=== PATIENT | female | born 1945 | race Caucasian/White ===

== ENCOUNTER 2022-06-29 11:48 | Emergency (ER) | payer MEDICARE, OTHER, SELFPAY ==
--- NOTE | ~2022-06-29 | XR_ITS ---
EXAMINATION: XR chest 2V DATE: 06/29/2022 12:16 INDICATION: Cough and fever. TECHNIQUE: Frontal and lateral views of the chest were obtained. COMPARISON: None. FINDINGS: There is mild atelectasis in lingula. No pleural effusion or pneumothorax. The heart size i s normal. There are changes of left shoulder replacement. There are changes of posterior fusion proce dure in lumbar spine. IMPRESSION: 1. Mild atelectasis in lingula. Reviewed, dictated and finalized at location A.
--- NOTE | 2022-06-29 11:50 | ED.URI ---
HPI - URI/Sore Throat General Chief Complaint: Upper Respiratory Infection Stated Complaint: uri symptoms/fever Time Seen by Provider: 06/29/22 11:50 Source: patient and RN notes reviewed History of Present Illness HPI Narrative: Patient is a 77-year-old female who presents the urgent care with complaints of upper respiratory symptoms and fever. Patient states her fevers been low-grade of 99-100.1. Patient states she has been taking Tylenol for the last 3 days with improvements. Patient states her main concern is the chest congestion and cough. Patient denies any chest pain or shortness of breath. Denies any urinary symptoms, abdominal pain, nausea or vomiting. Denies any ill exposures. Patient states that she had like symptoms 2 to 3 weeks ago, tested negative for COVID and has not had any recent testing completed. No other acute complaints. No acute distress noted. Patient aware of the plan of care. Some parts of this dictation were generated by voice recognition software and may contain typographical and/or grammatical inaccuracies. Related Data Home Medications Medication Instructions Recorded Confirmed amlodipine 5 mg tablet 5 mg DIRECTED 06/29/22 06/29/22 cyclobenzaprine 10 mg tablet 10 mg DIRECTED 06/29/22 06/29/22 ezetimibe 10 mg tablet 10 mg DIRECTED 06/29/22 06/29/22 famotidine 40 mg tablet 40 mg DIRECTED 06/29/22 06/29/22 levothyroxine 100 mcg tablet 100 mcg DIRECTED 06/29/22 06/29/22 losartan 50 mg tablet 50 mg DIRECTED 06/29/22 06/29/22 rosuvastatin 20 mg tablet 20 mg DIRECTED 06/29/22 06/29/22 Allergies Allergy/AdvReac Type Severity Reaction Status Date / Time meperidine Allergy Mild Verified 02/09/18 16:02 Review of Systems Review of Systems: CONSTITUTIONAL: Reports a fever EYES: Denies visual changes, redness, or discharge. ENT: Denies rhinorrhea, congestion, sore throat, or otalgia. CARDIOVASCULAR: Denies chest pain, palpitations, or edema. RESPIRATORY: Reports of chest congestion and cough without dyspnea GASTROINTESTINAL: Denies abdominal pain, nausea, vomiting, or diarrhea. GENITOURINARY: Denies dysuria or hematuria. SKIN: Denies rash or itching. MUSCULOSKELETAL: Denies back pain, joint pain, or myalgia. NEUROLOGIC: Denies headache, numbness, or weakness. All other systems reviewed are negative, except as documented in HPI. PMFSH Comments At the time of my signature, I reviewed and agree with the nursing past medical, surgical, social, and family history. There is no relevant family history pertinent to the patient complaint. Exam Narrative: GENERAL: This is a well-nourished, well-developed patient, in no apparent distress. HEAD: normocephalic, atraumatic. EYES: PERRL. Sclera clear/white. Vision is grossly intact. EARS: External ears normal, auditory canals clear and without drainage, TMs normal without perforation. Hearing grossly intact. NOSE: External nose normal with no obvious nasal discharge, nares without redness, no rhinorrhea. THROAT: Mucous membranes moist, posterior pharynx clear. Moderate postnasal drainage NECK: Neck supple, non-tender without lymphadenopathy CARDIOVASCULAR: Regular rate and rhythm without murmurs, gallops, or rubs. RESPIRATORY: Diminished right upper lobe and bibasilar without wheezes SKIN: warm, intact with no suspicious lesions or rash, good texture and turgor. NEURO: awake, alert, and oriented to person, place and time. There were no obvious focal neurologic abnormalities. EXTREMITIES: No clubbing, cyanosis, or edema. Course Course Level of Care: Express Care Visit Vital Signs Vital signs: Vital Signs Temperature 99.3 F 06/29/22 12:01 Pulse Rate 73 06/29/22 12:01 Respiratory Rate 16 06/29/22 12:01 Blood Pressure 129/66 06/29/22 12:01 Pulse Oximetry 98 06/29/22 12:01 Temperature 99.3 F 06/29/22 12:01 Pulse Rate 73 06/29/22 12:01 Respiratory Rate 16 06/29/22 12:01 Blood Pressure 129/66 06/29/22 12:01
[2022-06-29 12:01] VITALS: BP 129/66; PULSE 73; RESP 16; TEMP 37.4; O2SAT 98
== END 2022-06-29 12:39 | disposition home or self-care (01) ==
PROVIDERS: Emergency Provider Nurse Practitioner Family
DX: U07.1 COVID-19 (principal); E78.00 Pure hypercholesterolemia, unspecified; K21.9 Gastro-esophageal reflux disease without esophagitis; I12.9 Hypertensive chronic kidney disease with stage 1 through stage 4 chronic kidney disease, or unspecified chronic kidney disease; N18.30 Chronic kidney disease, stage 3 unspecified; Z90.5 Acquired absence of kidney
CPT/HCPCS: 71046; 87426; 99203; C9803; G0463

== ENCOUNTER 2022-10-12 08:24 | Emergency (ER) | payer MEDICARE, OTHER, SELFPAY ==
[2022-10-12 08:39] VITALS: BP 111/59; PULSE 83; RESP 16; TEMP 36.9; O2SAT 100
--- NOTE | 2022-10-12 08:47 | ED.SKABFB ---
HPI - Skin/Abscess/Foreign Bdy General Chief complaint: Skin/Abscess/Foreign Body Stated complaint: shingles Time Seen by Provider: 10/12/22 08:42 Source: patient Mode of arrival: ambulatory Limitations: no limitations History of Present Illness HPI narrative: Ms. Feliz is a 77-year-old female patient presenting to the clinic today with complaints of possible shingles to her left hip/back. She reports that this been going on for 2 days. Has noticed new spots spreading on her midback. She reports that the rash is painful. Has had 2 shingles shots in the past but has not finish the series of Zostavax due to COVID. Related Data Home Medications Medication Instructions Recorded Confirmed amlodipine 5 mg tablet 5 mg DIRECTED 06/29/22 06/29/22 ezetimibe 10 mg tablet 10 mg DIRECTED 06/29/22 06/29/22 famotidine 40 mg tablet 40 mg DIRECTED 06/29/22 06/29/22 levothyroxine 100 mcg tablet 100 mcg DIRECTED 06/29/22 06/29/22 losartan 50 mg tablet 50 mg DIRECTED 06/29/22 06/29/22 rosuvastatin 20 mg tablet 20 mg DIRECTED 06/29/22 06/29/22 aspirin 81 mg tablet 81 mg PO DAILY 10/12/22 10/12/22 cholecalciferol (vitamin D3) 10 20 mcg PO DAILY 10/12/22 10/12/22 mcg (400 unit) capsule levothyroxine 88 mcg tablet 88 mcg PO EVERY OTHER DAY 10/12/22 10/12/22 metoprolol succinate 25 mg 12.5 mg PO DAILY 10/12/22 10/12/22 tablet,extended release 24 hr pantoprazole 40 mg tablet,delayed 40 mg PO DAILY 10/12/22 10/12/22 release Allergies Allergy/AdvReac Type Severity Reaction Status Date / Time meperidine Allergy Mild Unknown Verified 10/12/22 08:45 Review of Systems Review of Systems: Pertinent positives per HPI. Patient denies any fever, chills, headache, visual changes, dizziness, cough, runny nose, sore throat, shortness of breath, chest pain, palpitations, nausea, vomiting, diarrhea, constipation, abdominal pain, or any urinary issues. PMFSH Comments At the time of my signature, I reviewed and agree with the nursing past medical, surgical, social, and family history. There is no relevant family history pertinent to the patient complaint. Exam Narrative: General: Well-developed, well nourished, in no apparent distress Head: Normocephalic, atraumatic. Cardio: Regular rate and rhythm, s1 and s2 normal, no murmur appreciated. Resp: Clear to auscultation bilaterally, no rhonchi, rales, wheezing or rubs. Integumentary: [place], warm, and dry, dark red raised base rash with vesicular lesions covering the left anterior hip, left fold of groin, left lateral hip, and left lower back/posterior hip-not crossing the dermatomes midline Course Course Emergency Course: Portions of this record may have been created with voice recognition software. Level of Care: Express Care Visit Vital Signs Vital signs: Vital Signs Temperature 36.9 C 10/12/22 08:39 Pulse Rate 83 10/12/22 08:39 Respiratory Rate 16 10/12/22 08:39 Blood Pressure 111/59 L 10/12/22 08:39 Pulse Oximetry 100 10/12/22 08:39 Temperature 36.9 C 10/12/22 08:39 Pulse Rate 83 10/12/22 08:39 Respiratory Rate 16 10/12/22 08:39 Blood Pressure 111/59 L 10/12/22 08:39 Pulse Oximetry 100 10/12/22 08:39 Vital signs reviewed MDM - Skin/Abscess/Foreign Bdy MDM Narrative Medical decision making narrative: At the time of visit patient is resting comfortably on exam table. She has a vesicular painful rash to the left lower hip/lower back/groin. I suspect that she has shingles. Prescription for Valtrex and lidocaine cream was sent to the pharmacy. Supportive measures were discussed with the patient and she voiced understanding of discharge instructions and agrees to treatment plan. Differential Diagnosis Differential diagnosis: Likely abscess of skin or subcutaneous tissue, herpes zoster, allergic reaction to drug, cellulitis, eczema and contact dermatitis Discharge Plan Discharge Clinical Impression: Herpes zoster Patient Disp
== END 2022-10-12 08:54 | disposition home or self-care (01) ==
PROVIDERS: Emergency Provider Nurse Practitioner Family
DX: B02.9 Zoster without complications (principal); E78.00 Pure hypercholesterolemia, unspecified; K21.9 Gastro-esophageal reflux disease without esophagitis; I12.9 Hypertensive chronic kidney disease with stage 1 through stage 4 chronic kidney disease, or unspecified chronic kidney disease; N18.30 Chronic kidney disease, stage 3 unspecified; E89.0 Postprocedural hypothyroidism; Z90.5 Acquired absence of kidney
CPT/HCPCS: 99213; G0463

== ENCOUNTER 2023-08-30 16:04 | Emergency (ER) | payer MEDICARE, OTHER, SELFPAY ==
--- NOTE | 2023-08-30 16:14 | ED.URI ---
HPI - URI/Sore Throat General Chief Complaint: Upper Respiratory Infection Stated Complaint: Cough Time Seen by Provider: 08/30/23 16:18 Source: patient and RN notes reviewed Mode of arrival: ambulatory Limitations: no limitations History of Present Illness HPI Narrative: 78-year-old female presents with concern for cough that started over the weekend. She denies fever, aches, chills, sweats. She denies sore throat, runny nose, stuffy nose, shortness of breath, fever, chest pain. Reports taking cough medicine without relief MD elicited complaint: cough Related Data Home Medications Medication Instructions Recorded Confirmed levothyroxine 100 mcg tablet 100 mcg PO DIRECTED 06/29/22 08/30/23 rosuvastatin 20 mg tablet 30 mg PO DIRECTED 06/29/22 08/30/23 aspirin 81 mg tablet 81 mg PO DAILY 10/12/22 08/30/23 cholecalciferol (vitamin D3) 10 20 mcg PO DAILY 10/12/22 08/30/23 mcg (400 unit) capsule levothyroxine 88 mcg tablet 88 mcg PO EVERY OTHER DAY 10/12/22 08/30/23 pantoprazole 40 mg tablet,delayed 40 mg PO DAILY 10/12/22 08/30/23 release Allergies Allergy/AdvReac Type Severity Reaction Status Date / Time meperidine Allergy Mild Unknown Verified 08/30/23 16:21 Review of Systems Review of Systems: CONSTITUTIONAL: Denies malaise, chills, sweats, or fever. EYES: Denies visual changes, redness, or discharge. ENT: Denies rhinorrhea, congestion, sinus pain, otalgia and sore throat. CARDIOVASCULAR: Denies chest pain, palpitations, or edema. RESPIRATORY: Reports cough. Denies dyspnea. GASTROINTESTINAL: Denies abdominal pain, nausea, vomiting, diarrhea SKIN: Denies rash or itching. MUSCULOSKELETAL: Denies myalgia. NEUROLOGIC: Denies headache. All systems reviewed & are unremarkable except as noted in HPI and below PMFSH Comments At time of signature, agree with nursing past medical, surgical, social and family history. There is no relevant family history pertinent to the presenting complaint Exam Narrative: GENERAL: Well-appearing, well-nourished, and in no acute distress. HEAD: Normocephalic EYES: PERRLA, conjunctivae clear ENT: Nares clear. Mucous membranes moist. TM pearly loera with dull light reflex bilaterally; no tragal tenderness. Oropharynx not erythematous without lesions. Tonsils not enlarged and without exudate, no drooling, no hoarseness, no trismus, uvula midline. NECK: Supple. No lymphadenopathy CHEST: Clear to auscultation, breath sounds equal. No wheezing, rhonchi, rales, or stridor. No respiratory distress, speaks in full sentences. HEART: Regular rate and rhythm. No murmur heard. SKIN: Warm, dry, no rash. NEURO: Alert and oriented x3. PSYCH: Normal mood and affect Course Course Emergency Course: Patient is aware of diagnosis, understands and agrees to treatment plan. Anticipatory guidance given. Patient agrees to follow-up as directed and is aware of reasons to seek care at the emergency department. Portions of this record may have been created with voice recognition software Level of Care: Express Care Visit Vital Signs Vital signs: Reviewed. MDM - URI/Sore Throat MDM Narrative Medical decision making narrative: Differential diagnosis considered: Rey virus, strep pharyngitis, allergic rhinitis, upper respiratory tract infection, sinusitis, rhinosinusitis, nasopharyngitis. viral pharyngitis, otitis media, otitis externa, pneumonia, bronchitis, viral cough syndrome, viral syndrome, and influenza. Exam findings show no acute concerns or changes; patient is non-toxic appearing and is in no distress. Patient is appropriate for outpatient treatment and follow-up. Lab Data Attestation: I reviewed the patient's lab results. Critical Care Time Critical Care Time Critical Care Time: No Discharge Plan Discharge Clinical Impression: Cough Patient Disposition: Home, Self-Care Condition: Stable Instructions: Acute Cough (ED) Additional Instructions: Viral illness
[2023-08-30 16:16] VITALS: BP 145/96; PULSE 104; RESP 16; TEMP 36.4; O2SAT 99
== END 2023-08-30 16:35 | disposition home or self-care (01) ==
PROVIDERS: Emergency Provider Nurse Practitioner
DX: R05.9 Cough, unspecified (principal); E78.00 Pure hypercholesterolemia, unspecified; K21.9 Gastro-esophageal reflux disease without esophagitis; I12.9 Hypertensive chronic kidney disease with stage 1 through stage 4 chronic kidney disease, or unspecified chronic kidney disease; N18.30 Chronic kidney disease, stage 3 unspecified; Z90.5 Acquired absence of kidney; E89.0 Postprocedural hypothyroidism; Z98.42 Cataract extraction status, left eye; Z98.41 Cataract extraction status, right eye
CPT/HCPCS: 99213; G0463

== ENCOUNTER 2023-12-16 08:32 | Inpatient (IN) | payer MEDICARE, OTHER, SELFPAY ==
[2023-12-16] VITALS (24 sets, daily range): BP systolic 114–193; BP diastolic 50–98; PULSE 57–101; RESP 14–24; TEMP 36.3–36.8; O2SAT 96–100; BMI 29.1
--- NOTE | ~2023-12-16 | US_ITS ---
EXAMINATION: US renal BI DATE: 12/17/2023 17:34 INDICATION: elevated creatinine TECHNIQUE: Multiple grayscale and Doppler ultrasound images of the kidneys were obtained. COMPARISON: None. FINDINGS: The right kidney measures 11.8 x 5.6 x 4.7 cm. The left kidney is surgically absent The right kidney demonstrates normal parenchymal echogenicity. 1.6 cm simple right renal cyst. There is no hydronephro sis. The bladder is not visualized. IMPRESSION: Normal right kidney. Status post left nephrectomy. Reviewed, dictated and finalized at location K. C DEVELOPER
--- NOTE | ~2023-12-16 | XR_ITS ---
EXAMINATION: XR chest 2V DATE: 12/16/2023 10:29 INDICATION: Shortness of breath. Central chest pain radiating to the jaw. TECHNIQUE: PA and lateral views of the chest were obtained. COMPARISON: Chest radiograph dated 06/29/2022 FINDINGS: Unchanged mild linear discoid atelectasis/scarring at the medial . No new airspace opacities, pulmona ry edema, pleural effusion or pneumothorax. The cardiomediastinal silhouette is normal. Left shoulder arthroplasty. Mild lower thoracic dextrocurvature with moderate to severe thoracic spondylosis. Part ial visualized pedicle screws in the upper lumbar spine for a lumbar posterior spinal fusion. IMPRESSION: 1. Chronic mild lingular discoid atelectasis/scarring. No acute cardiopulmonary disease. Reviewed, dictated and finalized at location A. GER MECHANICAL
--- NOTE | 2023-12-16 08:33 | ECG_ITS ---
Measurements Intervals [place] Rate: 62 P: 51 UT: 137 QRS: -4 QRSD: 87 T: 44 QT: 390 QTc: 396 Interpretive Statements SINUS RHYTHM NORMAL ELECTROCARDIOGRAM NO PREVIOUS ECG AVAILABLE FOR COMPARISON Electronically Signed On 12-16-2023 19:11:37 [employer] OPERATOR by Juan Rendon M.D.
[2023-12-16 09:11] LABS: Basophils Percent Auto 0.3 % (0.2-1.2); Eosinophils Absolute Auto 0.1 K/mm3 (0-0.3); Eosinophils Percent Auto 0.6 % (0-4.4); Hematocrit 34.6 % (37.0-47.0); Hemoglobin 10.9 g/dL (12.0-15.0); Immature Granulocyte Absolute 0.16 K/mm3 (0.00-0.031); Immature Granulocyte Percent A 1.4 % (0-0.5); Lymphocytes Absolute Auto 1.07 K/mm3 (0.9-3.2); Lymphocytes Percent Auto 9.6 % (18.3-44.2); Mean Corpuscular HGB Conc 31.5 g/dl (32-36); Mean Corpuscular Hemoglobin 30.6 pg (26-34); Mean Corpuscular Volume 97.2 fl (80-100); Mean Platelet Volume 10.7 fl (7.4-10.4); Monocytes Absolute Auto 0.5 K/mm3 (0.1-0.6); Monocytes Percent Auto 4.2 % (2.6-8.5); Neutrophils Absolute Auto 9.3 K/mm3 (1.3-6.7); Neutrophils Percent Auto 83.9 % (45.5-73.1); Platelet Count Result 208 k/mm3 (150-375); Red Blood Count 3.56 M/mm3 (4.2-5.4); Red Cell Distribution Width 14.9 % (11.5-14.5); White Blood Count 11.1 K/mm3 (4.5-10.0)
[2023-12-16 09:23] LABS: Alanine Aminotransferase 19 U/L (6-35); Alkaline Phosphatase 67 U/L (38-126); Anion Gap 10 mmol/L (8-16); Aspartate Amino Transferase 25 U/L (14-36); Bilirubin,Total 0.6 mg/dL (0.2-1.3); Blood Urea Nitrogen 25 mg/dL (7-17); Calcium 10.9 mg/dL (8.4-10.2); Carbon Dioxide 21 mmol/L (22-30); Chloride 106 mmol/L (98-107); Estimated CRCL calculation 28 ml/min; Estimated Glomerular Filt Rate 36; Glucose 168 mg/dL (65-110); Lipase 256 U/L (23-300); Potassium 5.4 mmol/L (3.4-5.0); Sodium 137 mmol/L (137-145)
[2023-12-16 09:29] LABS: Partial Thromboplastin Time 23.3 SECONDS (22.3-36.8); Prothrombin Time 13.3 Seconds (11.1-14.7)
[2023-12-16 09:36] LABS: Troponin I < 0.012 ng/mL (0.000-0.034)
--- NOTE | 2023-12-16 11:01 | ED.CHESTPAIN ---
HPI - Chest Pain General Chief Complaint: Chest Pain Stated Complaint: cp/sob/jaw pain Time Seen by Provider: 12/16/23 11:00 History of Present Illness HPI narrative: Patient is a 78-year-old female who presents to the emergency department this morning complaining of chest pressure that started approximately 30 minutes prior to arrival. Pain originates in the substernal region and radiates to her left jaw. Patient states that she does have mild shortness of breath associated with the pain but denies any nausea or vomiting episodes. Patient is also denying any abdominal pain, dysuria, hematuria, constipation, diarrhea, melena, hematochezia, fevers, chills, headaches, dizziness, blurry visions, focal weakness, numbness and no tingling. There are no other modifying, alleviating, or precipitating factors at this time. Related Data Home Medications Medication Instructions Recorded Confirmed levothyroxine 100 mcg tablet 100 mcg PO DIRECTED 06/29/22 08/30/23 rosuvastatin 20 mg tablet 30 mg PO DIRECTED 06/29/22 08/30/23 aspirin 81 mg tablet 81 mg PO DAILY 10/12/22 08/30/23 cholecalciferol (vitamin D3) 10 20 mcg PO DAILY 10/12/22 08/30/23 mcg (400 unit) capsule levothyroxine 88 mcg tablet 88 mcg PO EVERY OTHER DAY 10/12/22 08/30/23 pantoprazole 40 mg tablet,delayed 40 mg PO DAILY 10/12/22 08/30/23 release Allergies Allergy/AdvReac Type Severity Reaction Status Date / Time meperidine Allergy Mild Unknown Verified 08/30/23 16:21 Review of Systems Review of Systems: All systems are reviewed and are negative unless stated otherwise in the HPI. [facility] Past Medical History Medical History Former tobacco use GERD (gastroesophageal reflux disease) HLD (hyperlipidemia) HTN (hypertension) Hypothyroidism Renal cell carcinoma s/p nephrectomy Surgical History Surgical History History of appendectomy History of section x2 History of nephrectomy History of partial thyroidectomy Comments Past medical history of hypothyroidism, GERD, hypertension and hyperlipidemia, past surgical history includes appendectomy, 2 sections, partial thyroidectomy and nephrectomy secondary to renal cell carcinoma. Used to smoke tobacco but quit in 2006, denies any alcohol abuse or illicit drug use. Exam Narrative: General: Alert, awake, afebrile, in no acute distress. HEENT: PERRL, no rhinorrhea, no post nasal drip, oropharynx clear. Neck: Trachea midline, no JVD, no lymphadenopathy. Cardiovascular: Regular rate and rhythm, no murmurs, rubs or gallops, no peripheral edema. Respiratory: Clear to auscultation bilaterally, no tachypnea, no wheezing, no rhonchi, no rubs, no respiratory distress. Abdomen: Soft, nontender, nondistended, no rebound, no guarding, no peritoneal signs. Musculoskeletal: No joint swelling or deformity, normal muscle tone. Skin: No rashes or petechia, no signs of infection. Psychiatric: Alert and oriented, normal behavior and judgment for situation. Neurological: Alert and oriented to person, place, and time. Follows all commands. No focal deficits, speech is clear and fluent. Course Vital Signs Vital signs: Vital Signs Temperature 97.6 F 12/16/23 08:41 Pulse Rate 57 L 12/16/23 08:41 Respiratory Rate 18 12/16/23 08:41 Blood Pressure 193/82 H 12/16/23 08:41 Pulse Oximetry 100 12/16/23 08:41 Oxygen Delivery Room Air 12/16/23 08:41 Temperature 97.6 F 12/16/23 08:41 Pulse Rate 75 12/16/23 14:48 Respiratory Rate 23 H 12/16/23 14:48 Blood Pressure 159/65 H 12/16/23 14:48 Pulse Oximetry 100 12/16/23 14:48 Oxygen Delivery Room Air 12/16/23 11:28 MDM - Chest Pain MDM Narrative Medical decision making narrative: The patient was evaluated by myself in the emergency department. History is obtained from patient who is an independent historian a
[2023-12-16] MEDS: ASPIRIN 81 MG CHEWABLE TABLET 324 MG PO (11:33)
--- NOTE | 2023-12-16 12:29 | ECG_ITS ---
Measurements Intervals [place] Rate: 68 P: 45 CO: 144 QRS: -16 QRSD: 86 T: 51 QT: 376 QTc: 401 Interpretive Statements SINUS RHYTHM NORMAL ELECTROCARDIOGRAM COMPARED TO ECG 12/16/2023 08:38:16 NO SIGNIFICANT CHANGES Electronically Signed On 12-16-2023 19:14:18 [employer] by Juan Rendon M.D.
[2023-12-16 13:03] LABS: Troponin I 0.095 ng/mL (0.000-0.034)
--- NOTE | 2023-12-16 13:36 | PM.IMHP ---
H&P: HPI History of Present Illness Date/Time: 12/16/23 13:36 Chief Complaint: Chest Pain Narrative: 78 y/o F presents here with chest pain with PMH of hypothyroidism, GERD, HTN, HLD, renal cell carcinoma s/p nephrectomy, and former smoker (cessation in 2006). 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 Pain is non-radiating. Having additional pain in her left jaw which is more severe than her chest discomfort. Described chest discomfort as pressure and pain in jaw was dull/achy. Pain was constant. Having associated mild shortness of breath and fatigue. Endorses sleeplessness and insomnia overnight last night. No diaphoresis, nausea, vomiting, syncope, or dizziness. No aggravating or alleviating factors identified by patient. No previous hx of cardiac procedures or [place]. No recent illnesses. No abdominal swelling or LE swelling. No abdominal pain or epigastric pain. Patient is not on a blood thinner, but takes a daily ASA. Pain has now resolved - was given 324 of ASA, otherwise no intervention or alleviating factors identified by patient. Pain lasted total of 2-3 hours. Initial VS at presentation: 97.6F, HR 57, RR 18, 193/82, and 100% on RA. ED workup showed WBC 11.1, hgb 10.9, K 5.4, creatinine 1.4, calcium 10.9, and initial troponin negative. Second troponin 0.095 with no reciprocal changes on EKG. CXR showed chronic mild lingular discoid atelectasis/scarring. No acute cardiopulmonary disease. Review of Systems Review of Systems: All systems reviewed & are unremarkable except as noted in HPI and below [facility] Past Medical History Medical History Former tobacco use GERD (gastroesophageal reflux disease) HLD (hyperlipidemia) HTN (hypertension) Hypothyroidism Renal cell carcinoma s/p nephrectomy Surgical History Surgical History History of appendectomy History of section x2 History of nephrectomy History of partial thyroidectomy Meds Home Medications and Allergies Home Medications Medication Instructions Recorded Confirmed Type levothyroxine 100 mcg tablet 100 mcg PO DIRECTED 06/29/22 08/30/23 History rosuvastatin 20 mg tablet 30 mg PO DIRECTED 06/29/22 08/30/23 History aspirin 81 mg tablet 81 mg PO DAILY 10/12/22 08/30/23 History cholecalciferol (vitamin D3) 10 20 mcg PO DAILY 10/12/22 08/30/23 History mcg (400 unit) capsule levothyroxine 88 mcg tablet 88 mcg PO EVERY OTHER DAY 10/12/22 08/30/23 History pantoprazole 40 mg tablet,delayed 40 mg PO DAILY 10/12/22 08/30/23 History release methylprednisolone 4 mg tablets in See Rx Instructions PO .COMPLEX 08/30/23 Rx a dose pack (Medrol ([place])) #21 ea promethazine-DM 6.25 mg-15 mg/5 mL 5 ml PO Q4-6H PRN cough #120 mL 08/30/23 Rx oral syrup Allergies Allergy/AdvReac Type Severity Reaction Status Date / Time meperidine Allergy Mild Unknown Verified 08/30/23 16:21 Vital Signs Vital Signs - 24 hr 12/16/23 08:41 12/16/23 11:28 12/16/23 11:28 Temperature 97.6 F Pulse Rate 57 L 76 Respiratory Rate 18 Blood Pressure 193/82 H Pulse Oximetry 100 97 Oxygen Delivery Room Air Room Air 12/16/23 10:58 12/16/23 11:01 12/16/23 11:31 Temperature Pulse Rate 69 69 80 Respiratory Rate 19 20 21 H Blood Pressure 172/66 H 159/64 H 160/75 H Pulse Oximetry 100 98 97 Oxygen Delivery 12/16/23 12:01 Temperature Pulse Rate 84 Respiratory Rate 22 H Blood Pressure 134/68 Pulse Oximetry 100 Oxygen Delivery Exam Const: General: comfortable and no acute distress Other: Patient, female, nontoxic appearance. HENMT: Face/Nose/Sinus: Normal nares present Mouth: Yes moist mucous membranes Eyes: General: appearance normal, both eyes and all related structures Sclera: sclerae normal Pupils: Equal, round and reactive pupils present EOM: EOMs i
[2023-12-16] MEDS: HEPARIN SODIUM 5,000 UNITS/ML VIAL 3500 UNITS IV PUSH (14:43)
[2023-12-16] MEDS: HEPARIN SOD/D5W 100 UNITS/ML 25,000 UNITS/250 ML BAG 7 UNITS IV CONT (14:43)
[2023-12-16 14:48] LABS: NT Pro B Type Natriuretic Pept 339 pg/mL (19.9-100)
[2023-12-16 15:18] LABS: Troponin I 0.297 ng/mL (0.000-0.034)
[2023-12-16] MEDS: ACETAMINOPHEN 500 MG TABLET 1000 MG PO (17:06)
[2023-12-16] MEDS: MORPHINE SULFATE (*CRX) 4 MG/ML INJ IV PUSH (18:00)
--- NOTE | 2023-12-16 21:17 | ADMGEN ---
This patient, Nika Feliz, was admitted to IMU Room 206-01 on 12/16/23 at 2035. Patient/family oriented to hospital policies and general routines including ID bracelet, bed and alarms, visiting hours, pain management, procedures, bathroom and other care routines, personal items, smoking policy, room service/diet, and visiting hours. Information on how to activate the Rapid Response Team has been discussed. Patient/Family are encouraged to report perceived risks to care and to ask questions if they do not understand what they are told or what they should do.
[2023-12-16 21:19] LABS: Partial Thromboplastin Time 29.5 SECONDS (22.3-36.8)
[2023-12-16] MEDS: HEPARIN SODIUM 5,000 UNITS/ML VIAL 4000 UNITS IV PUSH (21:41)
[2023-12-16] MEDS: LACTATED RINGERS 1,000 ML 100 ML IV CONT (21:46)
[2023-12-17] VITALS (19 sets, daily range): BP systolic 132–138; BP diastolic 56–74; PULSE 65–86; RESP 15–18; TEMP 36.3–36.8; O2SAT 97–98
[2023-12-17 04:41] LABS: Basophils Percent Auto 0.3 % (0.2-1.2); Eosinophils Percent Auto 0.1 % (0-4.4); Hematocrit 27.8 % (37.0-47.0); Hemoglobin 9.1 g/dL (12.0-15.0); Immature Granulocyte Absolute 0.15 K/mm3 (0.00-0.031); Immature Granulocyte Percent A 1.4 % (0-0.5); Lymphocytes Absolute Auto 1.17 K/mm3 (0.9-3.2); Lymphocytes Percent Auto 11.3 % (18.3-44.2); Mean Corpuscular HGB Conc 32.7 g/dl (32-36); Mean Corpuscular Hemoglobin 31.5 pg (26-34); Mean Corpuscular Volume 96.2 fl (80-100); Mean Platelet Volume 11.1 fl (7.4-10.4); Monocytes Absolute Auto 0.6 K/mm3 (0.1-0.6); Monocytes Percent Auto 5.8 % (2.6-8.5); Neutrophils Absolute Auto 8.4 K/mm3 (1.3-6.7); Neutrophils Percent Auto 81.1 % (45.5-73.1); Platelet Count Result 180 k/mm3 (150-375); Red Blood Count 2.89 M/mm3 (4.2-5.4); White Blood Count 10.4 K/mm3 (4.5-10.0)
[2023-12-17 04:44] LABS: Partial Thromboplastin Time 58.5 SECONDS (22.3-36.8)
[2023-12-17] MEDS: HEPARIN SODIUM 5,000 UNITS/ML VIAL 2500 UNITS IV PUSH ×2 (05:02→12:07)
[2023-12-17] MEDS: LEVOTHYROXINE SODIUM 88 MCG TABLET PO (05:53)
--- NOTE | 2023-12-17 08:44 | PM.CNNEP ---
Assessment and Plan Assessment and plan (1) Abnormal results of kidney function studies: Code(s): R94.4 - Abnormal results of kidney function studies Status: Acute Assessment and Plan: the patient has a creatinine of 1.4. this may be due to the nephrectomy. Typically there is some unused parenchyma when someone has to kidneys. As we age , because there is deterioration of renal function, the kidneys call this unused parenchyma to try to maintain the GFR. therefore if a nephrectomy happens when a person is 20 years old the GFR may not drop and half because of participation of this kidney reserve. However at 78, because of decline in kidney function with age, the amount of reserves is lower and so the GFR drops more on a percentage basis. Therefore it is likely that her creatinine was not normal after the kidney was removed. I suspect that this may be her chronic creatinine however it is also possible that it may be better than this and she has something superimpose such as a little dehydration since she was not feeling very well when she got to the ER. Other things can happen as well to make the creatinine higher but I think these are less likely in this clinical scenario. At this point would like to give some gentle IV fluids to make sure the patient is well hydrated. We can call the primary care physician and ask for past creatinine values. We also discussed the fact that she may end up having a cardiac catheterization. this involves contrast of course. We discussed that the only way contrast leaves the body is through the kidneys and therefore there may be some temporary damage to the kidneys. We can minimize this phenomenon by minimizing the amount of dye given and also by making sure the patient is well hydrated. This is also why I would like to give some IV fluids. We discussed that usually there is very little change in GFR and sometimes there is a small change which is only noted by labs and rarely there might be some more substantial decrease in the kidney function leading to such things as low urine output or even needing dialysis. By enlarged most of these are reversible and the patient would get back to the original kidney function. We discussed the above at length. At this point will get urine electrolytes, renal sonogram, CPK, and give some IV fluids. will also get some more labs from this morning. (2) Chest pain: Code(s): R07.9 - Chest pain, unspecified Status: Acute Assessment and Plan: The patient is on a heparin drip. She is taking aspirin. Cardiology is going to see her. (3) Essential (primary) hypertension: Code(s): I10 - Essential (primary) hypertension Status: Acute Assessment and Plan: Blood pressure is high when she came in, possibly due to all the excitement. However now the blood pressure is doing better. (4) History of nephrectomy: Code(s): Z90.5 - Acquired absence of kidney Status: Acute Assessment and Plan: As discussed above. Due to cancer. (5) Hyperkalemia: Code(s): E87.5 - Hyperkalemia Status: Acute Assessment and Plan: Potassium was high yesterday. Will repeat this today and treat if needed. History of Present Illness Reason for Consult Consult date: 12/17/23 Chief Complaint Chief complaint: CP,NSTEMI History of Present Illness Narrative: Lacie is a very pleasant 78-year-old lady who has multiple medical problems including hypertension for about 5 or 10 years, renal cell carcinoma status post nephrectomy 3 years ago, arthritis, sciatica, hyperlipidemia, and GERD. The patient says that she started having chest pain a few minutes before she decided to come to the emergency room. It was a pressure-like chest pain which was in the center of the chest and which radiated into the right jaw. She had mild shortness of breath. She had no nausea. The patient side come to the emerg
[2023-12-17] MEDS: ROSUVASTATIN 10 MG TABLET 30 MG PO (08:46)
[2023-12-17] MEDS: PANTOPRAZOLE 40 MG TABLET PO (08:47)
[2023-12-17] MEDS: METOPROLOL SUCCINATE EXT REL 12.5 MG TABCR PO (08:48)
[2023-12-17] MEDS: ASPIRIN 81 MG ENTERIC TABLET PO (08:49)
[2023-12-17 09:40] LABS: Anion Gap 8 mmol/L (8-16); Blood Urea Nitrogen 31 mg/dL (7-17); Calcium 9.5 mg/dL (8.4-10.2); Carbon Dioxide 20 mmol/L (22-30); Chloride 108 mmol/L (98-107); Creatine Kinase 83 U/L (30-135); Estimated CRCL calculation 30 ml/min; Estimated Glomerular Filt Rate 40; Glucose 137 mg/dL (65-110); Potassium 5.2 mmol/L (3.4-5.0); Sodium 136 mmol/L (137-145)
[2023-12-17] MEDS: HYDROcodone/acetaminophen (*CRX) 5-325 MG TABLET 1 TAB PO ×3 (10:42→21:15)
[2023-12-17] MEDS: LORazepam (*CRX) 0.5 MG TABLET PO ×2 (10:43→16:58)
[2023-12-17] MEDS: SODIUM CHLORIDE 0.9% IV 1,000 ML 60 ML IV CONT (10:45)
[2023-12-17 11:03] LABS: Appearance Urine Clear (Clear); Bilirubin Urine Negative (Negative); Blood Urine Negative (Negative); Color Urine Yellow (Yellow); Glucose Urine UA Negative (Negative); Ketones Urine Negative (Negative); Leukocyte Esterase Ur Negative LEU/UL (NEGATIVE); Nitrate Urine Negative (Negative); Protein Urine Negative (Negative); Specific Grav Ur 1.012 (1.001-1.035); Urobilinogen Urine 0.2 mg/dL (<2.0)
[2023-12-17 11:06] LABS: Add Urine Microscopic? NO
[2023-12-17 11:10] LABS: Creatinine Urine 44.5 mg/dL; Total Protein Urine Random 8 mg/dL; Ur Ttl Prot Creatinine Ratio 0.18 mg/mg (0-0.20)
[2023-12-17 11:11] LABS: Sodium Urine Random 93 meq/L
[2023-12-17 11:16] LABS: Partial Thromboplastin Time 64.4 SECONDS (22.3-36.8)
--- NOTE | 2023-12-17 11:24 | PM.CNCAR ---
Assessment and Plan Assessment and plan (1) Non-ST elevation NC (NSTEMI): Code(s): I21.4 - Non-ST elevation (NSTEMI) myocardial infarction Status: Acute Plan This is a 78-year-old lady with no prior cardiac history risk factors include hypertension and dyslipidemia. She entered the hospital with some self-limited ischemic type chest and jaw pain in there has been a very modest troponin rise. In this setting angiography should be recommended and had a long discussion with the patient about this. She is understanding of the procedure and agreeable. This led to the discussion regarding her code status. We will make her full code during the cardiac catheterization procedure. 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 Some of these will be waiting until later in the week Juan Rendon MD [facility] History of Present Illness History of Present Illness Consult date/time: 12/17/23 11:24 Reason For Visit: CP,NSTEMI Narrative: This is a 78-year-old lady I am seeing today at the request of the hospitalist because of evidence of non ST elevation NC/acute coronary syndrome. She presented [facility] emergency room yesterday afternoon because of some chest and jaw pain that began in the morning while she was at home. She describes in a sedentary resting at home she suddenly was noticing the onset of a pressure-like central chest discomfort yesterday that radiated to the left side of her jaw. The discomfort in the jaw was actually worse than the chest pain. The symptoms are going on for a little while before she and her decided it was concerning enough to come to the emergency room for evaluation. In the course of the emergency room for evaluation her electrocardiogram was found to be benign her troponin level was normal to begin with and then lizandro slightly on the 2nd sample. Her 3rd troponin lizandro up to 0.2. By that time the discomfort had still a resolved on its own and left appeared to have been self-limited. She was treated with aspirin anticoagulated continued with metoprolol and rosuvastatin and admitted to the IMU. She has not had any recurrent symptoms since being up in IMU she appears to be comfortable and in good spirits this morning. She denies any prior history of cardiac problems she is a active lady at her age she does walk regularly does not notice any chest discomfort or symptoms with exertion. Denies any symptoms of palpitations orthopnea PND or accumulating edema. Her past medical history is primarily remarkable for longstanding hypertension, dyslipidemia and a history of renal cell carcinoma for which she underwent a left nephrectomy at [facility] in the past. Her laboratory data does demonstrate some renal insufficiency with a creatinine of 1.4. She was seen by Nephrology earlier this morning in consultation Review of Systems Constitutional: Constitutional: Reports no additional constitutional complaints Eyes: Eyes: Reports no additional eye complaints ENT: Reports system reviewed and no additional complaints, except as documented Cardiovascular: Cardiovascular: Reports as per HPI Respiratory: Respiratory: Reports no additional respiratory complaints Gastrointestinal: Gastrointestinal: Reports no additional gastrointestinal complaints Genitourinary: Genitourinary: Reports no additional female genitourinary complaints Musculoskeletal: Musculoskeletal: Reports no additional musculoskeletal complaints Integumentary/Breasts: Skin/Breast: Reports system reviewed and no additional complaints, except as docu Neurologic: Reports system reviewed and no additional complaints, except as documented Endocrine: Endocrine: Reports no additional endocrine complaints Hematologic/Lymphatic: Hematologic/Lymphatic: Reports no additional hematologic/lymphatic complaints Nacho
[2023-12-17] MEDS: MORPHINE SULFATE (*CRX) 2 MG/ML INJ IV PUSH (12:16)
--- NOTE | 2023-12-17 12:26 | PM.IMPN ---
Progress Note: A&P Assessment and Plan (1) Non-ST elevation NV (NSTEMI): Code(s): I21.4 - Non-ST elevation (NSTEMI) myocardial infarction Status: Acute Assessment and Plan: - troponin: <0.012 -> 0.095 -> 0.297 - EKG, initial: Sinus rhythm with rate of 62, no previous EKG for comparison. Awaiting formal read. - EKG, repeat: Sinus rhythm, rate 68, when compared to EKG done previously at 8:38 a.m., no significant changes. -continue heparin gtt - cardiology consulted, appreciate recommendation and plan: Patient is being scheduled for angiogram in the a.m. as allowed by Cardiology schedule - asa 324, continue as 81 mg daily - nitro SL PRN - BNP 339 -continue rosuvastatin 30 mg PO (2) DEVANG (acute kidney injury): Code(s): N17.9 - Acute kidney failure, unspecified Status: Acute Assessment and Plan: - creatinine down 1.3, initially 1.4 on arrival - BUN 31, GFR 40, ECC 30 - hx of nephrectomy, no CKD or renal function abnormalities historically per patient's knowledge. - nephrology consulted appreciate recommendation and plan Content rehydration with normal saline 1 L 60 ml/hr - monitor electrolytes -monitor I&O (3) Hyperkalemia: Code(s): E87.5 - Hyperkalemia Status: Acute Assessment and Plan: K+ 5.2 -continue telemetry monitoring -recheck BMP now and in the a.m. -check vitals q.4 hours (4) Essential (primary) hypertension: Code(s): I10 - Essential (primary) hypertension Status: Acute Assessment and Plan: -continue home medication metoprolol 12.5 p.o. daily (5) History of nephrectomy: Code(s): Z90.5 - Acquired absence of kidney Status: Chronic Assessment and Plan: History of left nephrectomy (6) Acute left-sided low back pain: Code(s): M54.50 - Low back pain, unspecified Status: Acute Assessment and Plan: -acute onset, denies any recent falls or trauma -describes pain as nonradiating left lower lumbar region -use [place] 5-325 p.o. q.4 hours p.r.n. -may use lidocaine transdermal patch affected area (7) Anxiety: Code(s): F41.9 - Anxiety disorder, unspecified Status: Acute Assessment and Plan: Acute, suspect related to current health diagnose, does not have a history of anxiety -use lorazepam 0.5 mg p.o. q.6 hours p.r.n. for anxiety Plan Admitted for NSTEMI. Troponin initially negative, then +. Started on heparin gtt. Cardiology consulted. On ASA and statin at home. Home Meds/Chronic Conditions Diet: heart healthy GI Prophylaxis: pantoprazole IVP DVT Prophylaxis: SCDs, heparin gtt Lines: pIV Code Status: Full Subjective Date/time seen: 12/17/23 12:26 Interval history: 78 y/o F presents here with chest pain with PMH of hypothyroidism, GERD, HTN, HLD, renal cell carcinoma s/p nephrectomy, and former smoker (cessation in 2006). 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 Pain is non-radiating. Having additional pain in her left jaw which is more severe than her chest discomfort. Described chest discomfort as pressure and pain in jaw was dull/achy. Pain was constant. Having associated mild shortness of breath and fatigue. Endorses sleeplessness and insomnia overnight last night. No diaphoresis, nausea, vomiting, syncope, or dizziness. No aggravating or alleviating factors identified by patient. No previous hx of cardiac procedures or NV. No recent illnesses. No abdominal swelling or LE swelling. No abdominal pain or epigastric pain. Patient is not on a blood thinner, but takes a daily ASA. Pain has now resolved - was given 324 of ASA, otherwise no intervention or alleviating factors identified by patient. Pain lasted total of 2-3 hours. Initial VS at presentation: 97.6F, HR 57, RR 18, 193/82, and 100% on RA. ED workup revealed: WBC 11.1, hgb 10.9, K 5.4, creatinine 1.4, calcium 10.9, and initial troponin negative. Second t
[2023-12-17] MEDS: LIDOCAINE 5% PATCH 1 PATCH TRANSDERM (12:51)
[2023-12-17] MEDS: HEPARIN SOD/D5W 100 UNITS/ML 25,000 UNITS/250 ML BAG 11 UNITS IV CONT (16:58)
[2023-12-17 19:04] LABS: Anion Gap 12 mmol/L (8-16); Blood Urea Nitrogen 29 mg/dL (7-17); Calcium 9.2 mg/dL (8.4-10.2); Carbon Dioxide 19 mmol/L (22-30); Chloride 105 mmol/L (98-107); Estimated CRCL calculation 36 ml/min; Estimated Glomerular Filt Rate 48; Glucose 181 mg/dL (65-110); Potassium 4.6 mmol/L (3.4-5.0); Sodium 136 mmol/L (137-145)
[2023-12-17 19:06] LABS: Partial Thromboplastin Time 79.8 SECONDS (22.3-36.8)
[2023-12-18] VITALS (28 sets, daily range): BP systolic 127–156; BP diastolic 57–86; PULSE 63–90; RESP 13–18; TEMP 36.2–37.1; O2SAT 93–99
[2023-12-18 01:38] LABS: Partial Thromboplastin Time 70.4 SECONDS (22.3-36.8)
[2023-12-18] MEDS: SODIUM CHLORIDE 0.9% IV 1,000 ML 60 ML IV CONT (03:33)
[2023-12-18 04:43] LABS: Basophils Percent Auto 0.2 % (0.2-1.2); Eosinophils Percent Auto 0.1 % (0-4.4); Hematocrit 28.7 % (37.0-47.0); Hemoglobin 8.8 g/dL (12.0-15.0); Immature Granulocyte Absolute 0.17 K/mm3 (0.00-0.031); Immature Granulocyte Percent A 1.9 % (0-0.5); Lymphocytes Absolute Auto 1.24 K/mm3 (0.9-3.2); Lymphocytes Percent Auto 13.9 % (18.3-44.2); Mean Corpuscular HGB Conc 30.7 g/dl (32-36); Mean Corpuscular Hemoglobin 30.2 pg (26-34); Mean Corpuscular Volume 98.6 fl (80-100); Mean Platelet Volume 10.6 fl (7.4-10.4); Monocytes Absolute Auto 0.6 K/mm3 (0.1-0.6); Monocytes Percent Auto 6.6 % (2.6-8.5); Neutrophils Absolute Auto 6.9 K/mm3 (1.3-6.7); Neutrophils Percent Auto 77.3 % (45.5-73.1); Platelet Count Result 168 k/mm3 (150-375); Red Blood Count 2.91 M/mm3 (4.2-5.4); Red Cell Distribution Width 15.3 % (11.5-14.5); White Blood Count 8.9 K/mm3 (4.5-10.0)
[2023-12-18 04:56] LABS: Alanine Aminotransferase 17 U/L (6-35); Albumin Level 4.1 g/dL (3.5-5.1); Alkaline Phosphatase 53 U/L (38-126); Anion Gap 8 mmol/L (8-16); Aspartate Amino Transferase 21 U/L (14-36); Bilirubin,Total 0.4 mg/dL (0.2-1.3); Blood Urea Nitrogen 29 mg/dL (7-17); Calcium 8.9 mg/dL (8.4-10.2); Carbon Dioxide 21 mmol/L (22-30); Chloride 107 mmol/L (98-107); Estimated CRCL calculation 36 ml/min; Estimated Glomerular Filt Rate 48; Glucose 137 mg/dL (65-110); Potassium 4.6 mmol/L (3.4-5.0); Sodium 136 mmol/L (137-145)
[2023-12-18] MEDS: LEVOTHYROXINE SODIUM 100 MCG TABLET PO (06:25)
[2023-12-18] MEDS: ROSUVASTATIN 10 MG TABLET 30 MG PO (09:13)
[2023-12-18] MEDS: LIDOCAINE 5% PATCH 1 PATCH TRANSDERM (09:13)
[2023-12-18] MEDS: FAMOTIDINE 20 MG TABLET 40 MG PO (09:13)
[2023-12-18] MEDS: PANTOPRAZOLE 40 MG TABLET PO (09:14)
[2023-12-18] MEDS: ASPIRIN 81 MG ENTERIC TABLET PO (09:14)
[2023-12-18] MEDS: METOPROLOL SUCCINATE EXT REL 12.5 MG TABCR PO (09:14)
--- NOTE | 2023-12-18 10:05 | PM.PNNEP ---
Progress Note: A&P Assessment and Plan (1) Abnormal results of kidney function studies: Code(s): R94.4 - Abnormal results of kidney function studies Status: Acute Assessment and Plan: creatinine 1.4mg/dl on admission down to 1.1mg/dl s/p iVF evaluation to date noted: renal ultrasound with normal solitary kidney urine electrolytes non-prerenal CPK normal UA benign suspect elevated creatinine due to mild dehydration and random fluctuations in her baseline renal function due to loss of nephron mass from previous nephrectomy follow trend of labs and UOP (2) History of nephrectomy: Code(s): Z90.5 - Acquired absence of kidney Status: Chronic Assessment and Plan: s/p left nephrectomy secondary to cancer (3) Chest pain: Code(s): R07.9 - Chest pain, unspecified Status: Acute Assessment and Plan: Cardiology following notd plans for cardiac catheterization today (4) Essential (primary) hypertension: Code(s): I10 - Essential (primary) hypertension Status: Chronic Assessment and Plan: reasonable control at this time follow trend of hemodynamics possible adjustment in medications based on cardiac cath findings... Will continue to follow. Subjective Date/time seen: 12/18/23 10:05 Interval history: Follow-up for elevated creatinine in the context of a solitary kidney. Chart reviewed - assuming care from Dr. Brown; renal function/creatinine better s/p IVFs; no apparent distress voiced at the time of my visit; at bedside and we discussed the situation. Exam Narrative: General: elderly but WD/WN female in NAD Heart: normal S1 and S2; no rub Lungs: clear to auscultation Abdomen: soft, nontender, nondistended, positive bowel sounds Extremities: no cyanosis or clubbing; no edema Skin: warm and dry Objective Data Vital Signs Vital Signs: Vital Signs Temp Pulse Resp BP Pulse Ox O2 Del Method 12/18/23 10:00 68 12/18/23 09:14 67 12/18/23 08:56 93 Room Air 12/18/23 07:35 98.1 F 63 18 145/64 H 98 12/18/23 06:00 64 12/18/23 04:55 98.1 F 66 18 140/86 97 12/18/23 04:00 63 12/18/23 04:00 Room Air 12/18/23 02:00 65 12/18/23 00:00 64 12/17/23 22:00 79 12/17/23 20:00 77 12/17/23 22:30 79 97 CPAP 12/18/23 00:00 97 Room Air 12/17/23 23:47 98.1 F 71 18 132/68 97 12/17/23 20:33 98.1 F 72 18 136/72 97 12/17/23 18:00 76 12/17/23 16:00 97 Room Air 12/17/23 16:00 70 12/17/23 14:00 78 Intake/Output Intake/Output: Intake & Output 12/15/23 12/16/23 12/17/23 12/18/23 23:59 23:59 23:59 23:59 Intake Total 490 1400 Output Total 350 2000 600 Balance -350 -1510 800 Meds/Results Medications: Active Medications Generic Name Dose Route Start Last Admin Trade Name Freq PRN Reason Stop Dose Admin Hydrocodone Bitart/Acetaminophen 1 tab 12/17/23 10:04 12/17/23 21:15 Hydrocodone/Acetaminophen (*Crx) 5-325 Mg Tablet PO 1 tab Q4H PRN Administration Pain Rated 4-6 Aspirin 81 mg 12/17/23 09:00 12/18/23 09:14 Aspirin 81 Mg Enteric Tablet PO 01/16/24 08:59 81 mg DAILY JAVON Administration Famotidine 40 mg 12/17/23 09:00 12/18/23 09:13 Famotidine 20 Mg Tablet PO 40 mg DAILY JAVON Administration Heparin Sodium (Porcine) 4,000 units 12/16/23 13:05 12/16/23 21:41 Heparin Sodium 5,000 Units/Ml Vial IV PUSH 4,000 units PRN PRN Administration aPTT less than 55 seconds Heparin Sodium (Porcine) 2,500 units 12/16/23 13:05 12/17/23 12:07 Heparin Sodium 5,000 Units/Ml Vial IV PUSH 2,500 units PRN PRN Administration aPTT 55 - 70 seconds Heparin Sodium/Dextrose 25,000 units in 250 mls @ 12 mls/hr 12/16/23 13:05 12/18/23 01:57 Heparin Sodium/D5w 100 Units/Ml IV CONT 1,200 units/hr .[id number] JAVON 12 mls/h
--- NOTE | 2023-12-18 12:03 | PM.IMPN ---
Progress Note: A&P Assessment and Plan (1) Non-ST elevation SD (NSTEMI): Code(s): I21.4 - Non-ST elevation (NSTEMI) myocardial infarction Status: Acute Assessment and Plan: -continue telemetry monitoring - asa 324, continue as 81 mg daily - nitro SL PRN -continue rosuvastatin 30 mg PO scheduled for cardiac catheterization today (2) DEVANG (acute kidney injury): Code(s): N17.9 - Acute kidney failure, unspecified Status: Acute Assessment and Plan: - creatinine down 1.3, initially 1.4 on arrival - BUN 31, GFR 40, ECC 30 - hx of nephrectomy, no CKD or renal function abnormalities historically per patient's knowledge. - nephrology consulted appreciate recommendation and plan Content rehydration with normal saline 1 L 60 ml/hr - monitor electrolytes -monitor I&O (3) Hyperkalemia: Code(s): E87.5 - Hyperkalemia Status: Acute Assessment and Plan: K+ 5.2 -continue telemetry monitoring -recheck BMP now and in the a.m. -check vitals q.4 hours (4) Essential (primary) hypertension: Code(s): I10 - Essential (primary) hypertension Status: Acute Assessment and Plan: -continue home medication metoprolol 12.5 p.o. daily (5) History of nephrectomy: Code(s): Z90.5 - Acquired absence of kidney Status: Chronic Assessment and Plan: History of left nephrectomy -nephrology consulted appreciate recommendation and plan (6) Acute left-sided low back pain: Code(s): M54.50 - Low back pain, unspecified Status: Acute Assessment and Plan: -acute onset, denies any recent falls or trauma -describes pain as nonradiating left lower lumbar region -use [place] 5-325 p.o. q.4 hours p.r.n. -may use lidocaine transdermal patch affected area (7) Anxiety: Code(s): F41.9 - Anxiety disorder, unspecified Status: Acute Assessment and Plan: Acute, suspect related to current health diagnose, does not have a history of anxiety -use lorazepam 0.5 mg p.o. q.6 hours p.r.n. for anxiety Plan Home Meds/Chronic Conditions Diet: heart healthy GI Prophylaxis: pantoprazole IVP DVT Prophylaxis: SCDs, heparin gtt Lines: pIV Code Status: Full Subjective Date/time seen: 12/18/23 12:03 Interval history: Date/time seen: 12/17/23? 12:26 Interval history: 78 y/o F presents here with chest pain with PMH of hypothyroidism, GERD, HTN, HLD, renal cell carcinoma s/p nephrectomy, and former smoker (cessation in 2006). 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 Pain is non-radiating. Having additional pain in her left jaw which is more severe than her chest discomfort. Described chest discomfort as pressure and pain in jaw was dull/achy. Pain was constant. Having associated mild shortness of breath and fatigue. Endorses sleeplessness and insomnia overnight last night. No diaphoresis, nausea, vomiting, syncope, or dizziness. No aggravating or alleviating factors identified by patient. No previous hx of cardiac procedures or SD. No recent illnesses. No abdominal swelling or LE swelling. No abdominal pain or epigastric pain. Patient is not on a blood thinner, but takes a daily ASA. Pain has now resolved - was given 324 of ASA, otherwise no intervention or alleviating factors identified by patient. Pain lasted total of 2-3 hours. Initial VS at presentation: 97.6F, HR 57, RR 18, 193/82, and 100% on RA. ED workup revealed:??WBC 11.1, hgb 10.9, K 5.4, creatinine 1.4, calcium 10.9, and initial troponin negative. Second troponin 0.095 with no reciprocal changes on EKG. CXR showed chronic mild lingular discoid atelectasis/scarring. No acute cardiopulmonary disease. Interval Hx: 12/17/2023:? Patient seen this morning, she is up ambulating from the bathroom to her bed with a steady gait she denies any complaints of chest pain nausea vomiting fever chills.? Patient reports new onset pain to her left
--- NOTE | 2023-12-18 12:42 | WPDMODSED ---
Moderate Sedation Note-Pt Data Patient Data Diagnosis: acute coronary syndrome/ non ST elevation AK Present Complaint: chest pain upon admission, currently asymptomatic Procedure to be performed/Plan: left heart catheterization Allergies Allergy/AdvReac Type Severity Reaction Status Date / Time meperidine Allergy Mild Hives Verified 12/16/23 21:21 Home Medications Medication Instructions Recorded Confirmed Type levothyroxine 100 mcg tablet 100 mcg PO DIRECTED 06/29/22 12/16/23 History rosuvastatin 20 mg tablet 30 mg PO DIRECTED 06/29/22 12/16/23 History aspirin 81 mg tablet 81 mg PO DAILY 10/12/22 12/16/23 History levothyroxine 88 mcg tablet 88 mcg PO EVERY OTHER DAY 10/12/22 12/16/23 History pantoprazole 40 mg tablet,delayed 40 mg PO DAILY 10/12/22 12/16/23 History release cholecalciferol (vitamin D3) 25 2,000 unit PO DAILY 12/16/23 12/16/23 History mcg (1,000 unit) capsule ezetimibe 10 mg tablet 10 mg PO DAILY 12/16/23 12/16/23 History famotidine 40 mg tablet 40 mg PO DAILY 12/16/23 12/16/23 History metoprolol succinate 25 mg 12.5 mg PO DAILY 12/16/23 12/16/23 History tablet,extended release 24 hr Current Medications: Active Medications Hydrocodone Bitart/Acetaminophen (Hydrocodone/Acetaminophen (*Crx) 5-325 Mg Tablet) 1 tab PO Q4H PRN PRN Reason: Pain Rated 4-6 Last Admin: 12/17/23 21:15 Dose: 1 tab Aspirin (Aspirin 81 Mg Enteric Tablet) 81 mg PO DAILY [facility] Stop: 01/16/24 08:59 Last Admin: 12/18/23 09:14 Dose: 81 mg Famotidine (Famotidine 20 Mg Tablet) 40 mg PO DAILY [facility] Last Admin: 12/18/23 09:13 Dose: 40 mg Heparin Sodium (Porcine) (Heparin Sodium 5,000 Units/Ml Vial) 4,000 units IV PUSH PRN PRN PRN Reason: aPTT less than 55 seconds Last Admin: 12/16/23 21:41 Dose: 4,000 units Heparin Sodium (Porcine) (Heparin Sodium 5,000 Units/Ml Vial) 2,500 units IV PUSH PRN PRN PRN Reason: aPTT 55 - 70 seconds Last Admin: 12/17/23 12:07 Dose: 2,500 units Heparin Sodium/Dextrose (Heparin Sodium/D5w 100 Units/Ml) 25,000 units in 250 mls @ 12 mls/hr IV CONT .[id number] [facility]; Protocol Last Titration: 12/18/23 01:57 Dose: 1,200 units/hr, 12 mls/hr Sodium Chloride (Normal Saline Iv) 1,000 mls @ 60 mls/hr IV CONT .[id number] [facility] Last Admin: 12/18/23 03:33 Dose: 60 mls/hr Levothyroxine Sodium (Levothyroxine Sodium 100 Mcg Tablet) 100 mcg PO Q48H [facility] Last Admin: 12/18/23 06:25 Dose: 100 mcg Levothyroxine Sodium (Levothyroxine Sodium 88 Mcg Tablet) 88 mcg PO Q48H [facility] Last Admin: 12/17/23 05:53 Dose: 88 mcg Lidocaine (Lidocaine 5% Patch) 1 patch TRANSDERM DAILY [facility] Last Admin: 12/18/23 09:13 Dose: 1 patch Lorazepam (Lorazepam (*Crx) 0.5 Mg Tablet) 0.5 mg PO Q6H PRN PRN Reason: Anxiety Last Admin: 12/17/23 16:58 Dose: 0.5 mg Metoprolol Succinate (Metoprolol Succinate Ext Rel 12.5 Mg Tabcr) 12.5 mg PO DAILY [facility] Last Admin: 12/18/23 09:14 Dose: 12.5 mg Nitroglycerin (Nitroglycerin Sl 0.4 Mg Tablet) 0.4 mg SUBLINGUAL Q5MIN PRN PRN Reason: Chest Pain Pantoprazole Sodium (Pantoprazole 40 Mg Tablet) 40 mg PO DAILY [facility] Last Admin: 12/18/23 09:14 Dose: 40 mg Rosuvastatin Calcium (Rosuvastatin 10 Mg Tablet) 30 mg PO DAILY [facility] Last Admin: 12/18/23 09:13 Dose: 30 mg Sedation/Anesthesia: No previous sedation/anesthesia problems (including family history). [facility] Past Medical History Medical History (Updated 12/17/23 @ 16:50 by Jaimee Pearce APRN) Former tobacco use GERD (gastroesophageal reflux disease) HLD (hyperlipidemia) HTN (hypertension) Hypothyroidism Renal cell carcinoma s/p nephrectomy Surgical History Surgical History (Updated 12/17/23 @ 16:48 by Jaimee Pearce APRN) History of appendectomy History of section x2 History of nephrectomy History of partial thyroidectomy Family History Family History Father Acute myocardial infarction Congestive heart fa
--- NOTE | 2023-12-18 15:28 | WPDCARDPROC ---
Cardiac Cath Procedure Note Date of procedure:: 12/18/23 Performing physician:: Juan Rendon MD Indication:: Acute coronary syndrome/ non ST elevation AR Brief clinical history:: this is a 78-year-old woman with a history of renal cancer, left nephrectomy, chronic anemia and mild renal insufficiency with solitary kidney. She entered the hospital over the weekend with ischemic chest pain that occurred at rest at home associated with a modest rise in her troponin level. Electrocardiogram was benign. She was heparinized and arrange for angiography today. Procedure Procedure performed:: Left ventriculogram coronary angiogram femoral angiogram followed by Angio-Seal to right femoral artery Sedation/Medication given:: fentanyl 50 mg Versed 2 mg case start time 1:29 p.m. case end time 1:53 p.m. sedation provided by Tracey Cunningham RN, trained observer Access site:: right femoral artery Estimated blood loss:: 20 cc Procedure note:: patient was brought to the cardiac catheterization lab in the postabsorptive state where the right femoral triangle was prepared in the normal fashion. Anesthesia was provided with 1% lidocaine infiltrated locally. Using the modified Seldinger technique the right femoral artery was punctured and a 5 Malawian vascular sheath was placed. After this I used a 5 Malawian angled pigtail catheter to measure left-sided hemodynamics and to inject the left ventriculogram in the 30 degree ZAMORA projection. Following this the left coronary artery was engaged and injected using a standard 5 Malawian FL4 catheter. The right coronary was engaged injected standard 5 Malawian JR4 catheter. The cineangiograms were reviewed and I case was terminated. An angiogram was performed to the femoral artery through the sheath and an Angio-Seal device was deployed with good hemostatic result. 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 Findings:: Hemodynamics: Central aortic pressure is 140 over 64 left ventricle 140/2 and his pressure 16 there is no gradient on pullback across the aortic valve. Left ventricle: The LV is normal in size all segments contract adequately the global ejection fraction is 55-60% by visual estimation the left main coronary artery is medium in caliber. There is mild 40-50% tapering in the distal left main which not appear to be flow limiting. The left anterior descending is a medium caliber artery extending down to the apex. 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 There is modest haziness in the anterior descending just prior to this aneurysmal segment. There is not appear to be any flow-limiting disease in this area or in the LAD otherwise. The diagonal branch takes off in this segment as well at an odd angle but it appears to be free of stenosis. The circumflex is a medium caliber artery giving rise to the marginal branches. The circumflex and its branches appear to be angiographically unremarkable the right coronary artery is large in caliber and dominant to the posterior circulation. The proximal segment of right coronary artery from the ostium to the 1st portion has a long area of moderate diffuse disease representing about 60-70% stenosis at least. The 2nd portion of the right coronary artery has 2 areas of marked ectatic dilatation followed by a high-grade 95% stenosis between the segments. Distal to this the right coronary artery is free of significant stenosis. Conclusion:: 1. Right coronary dominant circulation with angiographically uncommon appearance of ectatic Mitra dilated/aneurysmal segments in the proximal to mid LAD as well as in the mid right coronary artery. 2. Long area of moderate stenosis in the ostial to proximal right coronary artery with high-grade stenosis in the 2nd portion of the artery which is bridged by 2 areas of significa
[2023-12-18] MEDS: HYDROcodone/acetaminophen (*CRX) 5-325 MG TABLET 1 TAB PO (19:56)
[2023-12-19] VITALS (14 sets, daily range): BP systolic 135–167; BP diastolic 64–73; PULSE 58–83; RESP 18; TEMP 36.4–36.6; O2SAT 97–99
[2023-12-19 05:32] LABS: Basophils Percent Auto 0.5 % (0.2-1.2); Hematocrit 27.9 % (37.0-47.0); Hemoglobin 8.7 g/dL (12.0-15.0); Immature Granulocyte Absolute 0.11 K/mm3 (0.00-0.031); Immature Granulocyte Percent A 1.7 % (0-0.5); Lymphocytes Absolute Auto 1.05 K/mm3 (0.9-3.2); Mean Corpuscular HGB Conc 31.2 g/dl (32-36); Mean Corpuscular Hemoglobin 30.7 pg (26-34); Mean Corpuscular Volume 98.6 fl (80-100); Mean Platelet Volume 10.5 fl (7.4-10.4); Monocytes Absolute Auto 0.6 K/mm3 (0.1-0.6); Monocytes Percent Auto 8.7 % (2.6-8.5); Neutrophils Absolute Auto 4.8 K/mm3 (1.3-6.7); Neutrophils Percent Auto 73.1 % (45.5-73.1); Platelet Count Result 168 k/mm3 (150-375); Red Blood Count 2.83 M/mm3 (4.2-5.4); White Blood Count 6.6 K/mm3 (4.5-10.0)
[2023-12-19 05:39] LABS: Alanine Aminotransferase 15 U/L (6-35); Albumin Level 3.8 g/dL (3.5-5.1); Alkaline Phosphatase 47 U/L (38-126); Anion Gap 6 mmol/L (8-16); Aspartate Amino Transferase 18 U/L (14-36); Bilirubin,Total 0.3 mg/dL (0.2-1.3); Blood Urea Nitrogen 23 mg/dL (7-17); Calcium 8.5 mg/dL (8.4-10.2); Carbon Dioxide 21 mmol/L (22-30); Chloride 110 mmol/L (98-107); Estimated CRCL calculation 39 ml/min; Estimated Glomerular Filt Rate 54; Glucose 111 mg/dL (65-110); Potassium 4.4 mmol/L (3.4-5.0); Sodium 137 mmol/L (137-145)
[2023-12-19] MEDS: LEVOTHYROXINE SODIUM 88 MCG TABLET PO (05:43)
[2023-12-19] MEDS: ROSUVASTATIN 10 MG TABLET 30 MG PO (09:40)
[2023-12-19] MEDS: METOPROLOL SUCCINATE EXT REL 12.5 MG TABCR PO (09:40)
[2023-12-19] MEDS: ASPIRIN 81 MG ENTERIC TABLET PO (09:41)
[2023-12-19] MEDS: CLOPIDOGREL BISULFATE 75 MG TABLET PO (09:41)
[2023-12-19] MEDS: PANTOPRAZOLE 40 MG TABLET PO (09:41)
[2023-12-19] MEDS: LIDOCAINE 5% PATCH 1 PATCH TRANSDERM (09:41)
--- NOTE | 2023-12-19 10:10 | PM.PNNEP ---
Progress Note: A&P Assessment and Plan (1) Abnormal results of kidney function studies: Code(s): R94.4 - Abnormal results of kidney function studies Status: Acute Assessment and Plan: creatinine 1.4mg/dl on admission down to 1.1mg/dl s/p iVF evaluation to date noted: renal ultrasound with normal solitary kidney urine electrolytes non-prerenal CPK normal UA benign suspect elevated creatinine due to mild dehydration and random fluctuations in her baseline renal function due to loss of nephron mass from previous nephrectomy follow trend of labs and UOP (2) History of nephrectomy: Code(s): Z90.5 - Acquired absence of kidney Status: Chronic Assessment and Plan: s/p left nephrectomy secondary to cancer (3) Chest pain: Code(s): R07.9 - Chest pain, unspecified Status: Acute Assessment and Plan: Cardiology following s/p cardiac catheterization (on 12/18) with findings noted (4) Essential (primary) hypertension: Code(s): I10 - Essential (primary) hypertension Status: Chronic Assessment and Plan: reasonable control at this time follow trend of hemodynamics possible adjustment in medications based on cardiac cath findings... Will continue to follow. Subjective Date/time seen: 12/19/23 10:10 Interval history: Follow-up for elevated creatinine in the context of a solitary kidney. Appears to be doing reasonably well at the time of my visit; at bedside and we discussed the situation; renal function stable if not better by AM labs; s/p cardiac catheterization with results noted; no apparent distress voiced. Exam Narrative: General: elderly but WD/WN female in NAD Heart: normal S1 and S2; no rub Lungs: clear to auscultation Abdomen: soft, nontender, nondistended, positive bowel sounds Extremities: no cyanosis or clubbing; no edema Skin: warm and intact Objective Data Vital Signs Vital Signs: Vital Signs Temp Pulse Pulse Resp BP Pulse Ox O2 Del Method 12/19/23 09:40 69 12/19/23 07:16 97.5 F L 67 18 145/67 H 98 12/19/23 06:00 80 12/19/23 05:21 97.7 F 69 18 167/70 H 98 12/19/23 04:00 64 12/19/23 02:00 58 L 12/18/23 22:50 80 97 CPAP 12/19/23 00:00 69 12/19/23 00:17 97.6 F 71 18 135/64 97 12/18/23 22:00 80 12/18/23 20:00 77 12/18/23 20:08 97.2 F L 75 18 127/57 L 95 12/18/23 20:07 97.6 F 75 18 127/57 L 95 12/18/23 19:00 97.9 F 82 18 128/58 L 97 12/18/23 18:00 90 12/18/23 18:14 98.7 F 77 16 152/62 H 97 12/18/23 17:30 98.3 F 69 16 134/67 99 12/18/23 16:00 Room Air 12/18/23 16:00 68 12/18/23 14:00 66 12/18/23 12:00 Room Air 12/18/23 12:00 66 12/18/23 16:56 98.3 F 69 16 134/67 99 12/18/23 16:30 63 12/18/23 16:30 66 13 138/76 96 Room Air 12/18/23 16:15 83 12/18/23 16:15 83 16 150/73 H 95 Room Air 12/18/23 15:45 82 12/18/23 15:45 82 15 147/78 H 95 Room Air 12/18/23 16:00 73 12/18/23 16:00 98.0 F 79 18 156/67 H 97 Room Air 12/18/23 15:35 75 12/18/23 15:35 98.0 F 75 15 150/75 H 96 Room Air Intake/Output Intake/Output: Intake & Output 12/16/23 12/17/23 12/18/23 12/19/23 23:59 23:59 23:59 23:59 Intake Total 490 1640 480 Output Total 350 2000 1300 Balance -350 -1740 340 480 Meds/Results Medications: Active Medications Generic Name Dose Route Start Last Admin Trade Name Freq PRN Reason Stop Dose Admin Hydrocodone Bitart/Acetaminophen 1 tab 12/17/23 10:04 12/18/23 19:56 Hydrocodone/Acetaminophen (*Crx) 5-325 Mg Tablet PO 1 tab Q4H PRN Administration Pain Rated 4-6 Aspirin 81 mg 12/17/23 09:00 12/19/23 09:41 Aspirin 81 Mg Enteric Tablet PO 01/16/24 08:59 81 mg DAILY JAVON Administration Clopidogrel B
--- NOTE | 2023-12-19 12:33 | PM.PNCARD ---
Progress Note: A&P Assessment and Plan (1) Non-ST elevation IN (NSTEMI): Code(s): I21.4 - Non-ST elevation (NSTEMI) myocardial infarction Status: Acute Assessment and Plan: Patient chest pain free since admission. Peak troponin of 0.297. Cardiac catheterization 12/18/[address] Rendon shows: 1.? ? Right coronary dominant circulation with angiographically uncommon appearance of ectatic dilated/aneurysmal segments in the proximal to mid LAD as well as in the mid right coronary artery. 2.? ? Long area of moderate stenosis in the ostial to proximal right coronary artery with high-grade stenosis in the 2nd portion of the artery which is bridged by 2 areas of significant ectatic dilatation of the vessel. 3.? ? Preserved left ventricular systolic function. Given the significant ectatic dilatation of the RCA, medical management was recommended over PCI as PCI would be complex given the anatomy. Can consider complex intervention with her cardiology team at [facility]. Continue ASA 81mg once daily. Started on Plavix 75mg once daily, continue. Continue Rosuvastatin. On Toprol 12.5mg once daily, increase to 25mg. Patient was given a CD of her cardiac catheterization films. (2) Essential (primary) hypertension: Code(s): I10 - Essential (primary) hypertension Status: Chronic Assessment and Plan: Blood pressures this morning charted with SBP in the 160s, however, the cuff used was not the appropriate size for the patient. Repeat blood pressure this afternoon with appropriate sized cuff shows blood pressure of 140. Will increase her Toprol to 25mg once daily. (3) DEVANG (acute kidney injury): Code(s): N17.9 - Acute kidney failure, unspecified Status: Acute Assessment and Plan: Resolved Plan Okay to discharge home from our standpoint. Recommendations and plan discussed with Hospitalist. Subjective Date/time seen: 12/19/23 12:33 Interval history: Reason for visit: NSTEMI HPI: This is a 78-year-old lady I am seeing today at the request of the hospitalist because of evidence of non ST elevation IN/acute coronary syndrome.? She presented [facility] emergency room yesterday afternoon because of some chest and jaw pain that began in the morning while she was at home.? She describes in a sedentary resting at home she suddenly was noticing the onset of a pressure-like central chest discomfort yesterday that radiated to the left side of her jaw.? The discomfort in the jaw was actually worse than the chest pain.? The symptoms are going on for a little while before she and her decided it was concerning enough to come to the emergency room for evaluation.? In the course of the emergency room for evaluation her electrocardiogram was found to be benign her troponin level was normal to begin with and then lizandro slightly on the 2nd sample.? Her 3rd troponin lizandro up to 0.2.? By that time the discomfort had still a resolved on its own and left appeared to have been self-limited.? She was treated with aspirin anticoagulated continued with metoprolol and rosuvastatin and admitted to the IMU.? She has not had any recurrent symptoms since being up in IMU she appears to be comfortable and in good spirits this morning.? She denies any prior history of cardiac problems she is a active lady at her age she does walk regularly does not notice any chest discomfort or symptoms with exertion.? Denies any symptoms of palpitations orthopnea PND or accumulating edema.? Her past medical history is primarily remarkable for longstanding hypertension, dyslipidemia and a history of renal cell carcinoma for which she underwent a left nephrectomy at [facility] in the past.? Her laboratory data does demonstrate some renal insufficiency with a creatinine of 1.4.? She was seen by Nephrology earlier this morning in consultation Date of service 12/19: Doing well today. Has not had recurrence of her chest pain or jaw autumn
--- NOTE | 2023-12-19 13:16 | PM.DS ---
DS: Admitting Diagnosis Discharge Date 12/19/2023 Admitting Diagnosis Chest pain DS: Discharge Diagnosis Discharge Diagnosis (1) Anxiety: Code(s): F41.9 - Anxiety disorder, unspecified Status: Acute (2) Acute left-sided low back pain: Code(s): M54.50 - Low back pain, unspecified Status: Acute (3) Chest pain: Code(s): R07.9 - Chest pain, unspecified Status: Acute (4) Non-ST elevation MD (NSTEMI): Code(s): I21.4 - Non-ST elevation (NSTEMI) myocardial infarction Status: Acute (5) DEVANG (acute kidney injury): Code(s): N17.9 - Acute kidney failure, unspecified Status: Acute DS: Summary Hospital Course Reason for hospitalization: 78 y/o F presents here with chest pain with PMH of hypothyroidism, GERD, HTN, HLD, renal cell carcinoma s/p nephrectomy, and former smoker (cessation in 2006). 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 Pain is non-radiating. Having additional pain in her left jaw which is more severe than her chest discomfort. Described chest discomfort as pressure and pain in jaw was dull/achy. Pain was constant. Having associated mild shortness of breath and fatigue. Endorses sleeplessness and insomnia overnight last night. No diaphoresis, nausea, vomiting, syncope, or dizziness. No aggravating or alleviating factors identified by patient. No previous hx of cardiac procedures or MD. No recent illnesses. No abdominal swelling or LE swelling. No abdominal pain or epigastric pain. Patient is not on a blood thinner, but takes a daily ASA. Pain has now resolved - was given 324 of ASA, otherwise no intervention or alleviating factors identified by patient. Pain lasted total of 2-3 hours. Initial VS at presentation: 97.6F, HR 57, RR 18, 193/82, and 100% on RA. ED workup revealed:??WBC 11.1, hgb 10.9, K 5.4, creatinine 1.4, calcium 10.9, and initial troponin negative. Second troponin 0.095 with no reciprocal changes on EKG. CXR showed chronic mild lingular discoid atelectasis/scarring. No acute cardiopulmonary disease. Interval Hx: 12/17/2023:? Patient seen this morning, she is up ambulating from the bathroom to her bed with a steady gait she denies any complaints of chest pain nausea vomiting fever chills.? Patient reports new onset pain to her left lower, it has recently started since this morning, she relates pain associated from sleeping in bed she denies any recent falls, trauma.? Patient reports her pain is 6/10 nonradiating, reproducible paraspinal only occurring on the left side, endorses a history of left nephrectomy.? Cardiology and Nephrology have been consulted. 12/18/2023: pt seen this am she is returning to bed from the br, she has steady gait, denies any chest pain, n/v at this time. She is scheduled for cardiac catheterization today. is by the bedside. Plan to monitor pt overnight s/p: heart cath 12/19/2023: pt seen this am she denies any overnight events, pt reports she is anticipating discharge today. She denies any chest pain, n/v, fever or chills at this time. Pt is ambulatory without any SOB reported. Status at Discharge Functional status at discharge: independent ambulation Overall status at discharge: patient is back to baseline Time Spent with Patient Time attestation: Total time spent providing and/or coordinating discharge services: Time spent: Less than 30 minutes Exam Narrative: Exam Narrative: Ambulating with a steady gait from BR to bed Skin is warm and dry without rash Head normocephalic atraumatic Eyes normal sclerae and conjunctivae Mouth normal lips teeth and gums Neck no nodes no thyromegaly no carotid bruits Axillae no nodes Back: Reports left lower back pain colicky, nonradiating Lungs symmetric and clear to auscultation and percussion Heart regular rate and rhythm without rub or gallop Abdomen bowel sounds positive soft nontender, no HSM, masses, or brui
== END 2023-12-19 14:54 | disposition home or self-care (01) | DRG 282 ==
LOC: ANHED 13:14 → ANHIMU 15:41
PROVIDERS: Internal Medicine; Internal Medicine Nephrology; Specialist; Student in an Organized Health Care Education/Training Program; Admitting Provider Internal Medicine; Emergency Provider Emergency Medicine; PCP Internal Medicine; Visit Provider Nurse Practitioner
PROC: 4A023N7 Measurement of Cardiac Sampling and Pressure, Left Heart, Percutaneous Approach (ICD-10-PCS; CPT 93452; principal; 2023-12-18 12:00)
PROC: 4A023N7 Measurement of Cardiac Sampling and Pressure, Left Heart, Percutaneous Approach (ICD-10-PCS; 2023-12-18 12:00)
DX: I21.4 Non-ST elevation (NSTEMI) myocardial infarction (principal); D64.9 Anemia, unspecified; E78.5 Hyperlipidemia, unspecified; E03.9 Hypothyroidism, unspecified; E87.5 Hyperkalemia; E86.0 Dehydration; I10 Essential (primary) hypertension; K21.9 Gastro-esophageal reflux disease without esophagitis; N28.9 Disorder of kidney and ureter, unspecified; Z85.528 Personal history of other malignant neoplasm of kidney; Z90.5 Acquired absence of kidney; Z90.49 Acquired absence of other specified parts of digestive tract; Z90.89 Acquired absence of other organs; Z87.891 Personal history of nicotine dependence; Z79.82 Long term (current) use of aspirin; Z66 Do not resuscitate
CPT/HCPCS: 36415; 71046; 76775; 80048; 80053; 81003; 82550; 82570; 83690; 83880; 84100; 84156; 84300; 84484; 85025; 85610; 85730; 93005; 93458; 96374; 99291; A9270; C1760; C1887; C1894; G0269; J1644; J2250; J2270; J3010; J7030; J7040; J7120

== ENCOUNTER 2024-05-01 10:00 | Outpatient (RCR) | payer MEDICARE, OTHER, SELFPAY ==
[2024-01-19 12:02] VITALS: PULSE 84
== END 2024-05-01 11:11 | disposition home or self-care (01) ==
LOC: ANHCPREHAB 10:00
PROVIDERS: PCP Internal Medicine; Visit Provider Nuclear Medicine Nuclear Cardiology
DX: Z95.5 Presence of coronary angioplasty implant and graft (principal)
CPT/HCPCS: 93798

== ENCOUNTER 2024-10-17 11:00 | Outpatient (RCR) | payer MEDICARE, OTHER, SELFPAY ==
--- NOTE | 2024-08-15 16:20 | OPREHPOC ---
Outpatient Therapy Plan of Care This is a Multidisciplinary Plan of Care that may contain components documented by all disciplines (PT, OT, and ST.) PT Problem 1 PT Problem #1 Knowledge Deficit PT Goal 1 Goal / Goal Update Pt to be IND with issued HEP. Target Visit 10 PT Problem 2 PT Problem #2 Pain PT Goal 1 Goal / Goal Update Pt to report knee pain no greater than 3/10 in the last week. Target Visit 10 PT Goal 2 Goal / Goal Update Pt to report 75% return to PLOF. Target Visit 10 PT Problem 3 PT Problem #3 Impaired Range of Motion PT Goal 1 Goal / Goal Update Pt to improve passive knee extension to 0 degrees to improved stride length with ambulation. Target Visit 10 PT Goal 2 Goal / Goal Update Pt to improve knee flexion ROM to 120 degrees to be able to ambulate stairs without compensations. Target Visit 10 PT Problem 4 PT Problem #4 Impaired Functional Mobil PT Goal 1 Goal / Goal Update Pt to be able to squat and lift 10lb from ground level to simulate carrying in groceries. Target Visit 10 PT Problem 5 PT Problem #5 Impaired Strength
--- NOTE | 2024-08-15 16:20 | PTOPEVAL1 ---
Assessment and note entered by Ashkan Saini, PT, DPT Evaluation Information Assessment Status Evaluation Diagnosis L TKA ICD-10 Condition Codes (PT) Pain in left knee M25.562,Difficulty Walking R26.2 ,R26.9,Weakness R53.1,Z47.1 Subjective Information Pt states she had a L TKA on 07/16/24. She states so far she feels like she is doing pretty good but it started off rougher than she imagined. Pt states she has had troubles with walking before d/ t pain, she would like to walk without a cane. Pt goes to the gym and walks 1 mile 3x/wk. Reported Pain Level Pain Score 5: Self Report Assessment PT Clinical Summary Pt presents to therapy today for her initial evaluation following a L TKA on 07/16/24, she has completed 4 weeks of home health PT. Currently pt lacks ~15 degrees from terminal knee extension actively and ~10 degrees passively. She has poor quad activation as well. She ambulates with a significant decreased in gait speed with decreased stride length and step length, both likely limited by her lack of terminal knee extension. There is palpable edema present but incision is healing as expected. Skilled therapy services are indicated to improve ROM and gait, to manage pain, and to return to PLOF. Plan of Care Interventions Electrical Stimulation,Gait Training,Hot Pack/Cold Pack,Intermittent Compression,Manual Therapy, Neuro Re-education,Patient/Caregiver Educati, Therapeutic Activities,Therapeutic Exercise PT Services Indicated Yes Treatment Frequency and 2x/wk for 10 visits Duration These treatments will address the objective and functional deficits as defined above. The patient will be advanced safely and appropriately in order for the patient to progress towards his/her prior level of function. Additional exercises will be introduced and as well as a comprehensive home exercise program upon discharge, if needed, ?to ensure carryover of functional gains achieved in the clinic. This treatment plan has been reviewed and agreement upon by the patient.
--- NOTE | 2024-09-18 14:29 | OPREHPOC ---
Outpatient Therapy Plan of Care This is a Multidisciplinary Plan of Care that may contain components documented by all disciplines (PT, OT, and ST.) PT Problem 1 PT Problem #1 Knowledge Deficit PT Goal 1 Goal / Goal Update Pt to be IND with issued HEP. Target Visit 10 Progress Met PT Problem 2 PT Problem #2 Pain PT Goal 1 Goal / Goal Update Pt to report knee pain no greater than 3/10 in the last week. Target Visit 10 Progress Met PT Goal 2 Goal / Goal Update Pt to report 75% return to PLOF. 09/18/24: pt reports 60% return Target Visit 10 Progress Partially Met PT Problem 3 PT Problem #3 Impaired Range of Motion PT Goal 1 Goal / Goal Update Pt to improve passive knee extension to 0 degrees to improved stride length with ambulation. 09/18/24: progressed to 10 deg passively Target Visit 10 Progress Partially Met PT Goal 2 Goal / Goal Update Pt to improve knee flexion ROM to 120 degrees to be able to ambulate stairs without compensations. 09/18/24: progressed to 115 deg Target Visit 10 PT Problem 4 PT Problem #4 Impaired Functional Mobil PT Goal 1 Goal / Goal Update Pt to be able to squat and lift 10lb from ground level to simulate carrying in groceries. 09/18/24: pain limits motion Target Visit 10 Progress Partially Met PT Problem 5 PT Problem #5 Impaired Strength
--- NOTE | 2024-09-18 14:30 | PTOPPROG ---
Assessment and note entered by Ashkan Saini, PT, DPT Evaluation Information Assessment Status Progress Diagnosis L TKA ICD-10 Condition Codes (PT) Pain in left knee M25.562,Difficulty Walking R26.2 ,R26.9,Weakness R53.1,Z47.1 Subjective Information Pt states she is still having a lot of pain on the outside of her knee that she was not expecting to have. She states walking and daily activities have improved, with not much more than a soreness. She has been working on straightening her knee, this is limited by significant pain. Assessment PT Clinical Summary Pt presents to therapy today for her progress report following 10 visits to treat her L TKA on . Pt reports improved pain reports and improved functional mobility. She demonstrates improved gait speed, improved functional strength, and reports decreased pain. She continues to have decreased knee passive ROM pt currently lacks ~10 degrees from terminal knee extension passively. Continuation of skilled therapy services are indicated to improve ROM and gait, to manage pain, and to return to prior level of function. Plan of Care Interventions Electrical Stimulation,Gait Training,Hot Pack/Cold Pack,Intermittent Compression,Manual Therapy, Neuro Re-education,Patient/Caregiver Educati, Therapeutic Activities,Therapeutic Exercise PT Services Indicated Yes Treatment Frequency and 2-3x/wk for 10 visits Duration These treatments will address the objective and functional deficits as defined above. The patient will be advanced safely and appropriately in order for the patient to progress towards his/her prior level of function. Additional exercises will be introduced and as well as a comprehensive home exercise program upon discharge, if needed, ?to ensure carryover of functional gains achieved in the clinic. This treatment plan has been reviewed and agreement upon by the patient.
--- NOTE | 2024-10-17 11:53 | PTOPDC ---
Assessment and note entered by Ashkan Saini, PT, DPT Evaluation Information Assessment Status Discharge Diagnosis L TKA ICD-10 Condition Codes (PT) Pain in left knee M25.562,Difficulty Walking R26.2 ,Abnormalities of gait and mobility R26.9,Weakness R53.1,Aftercare following joint replacement surgery Z47.1 Subjective Information Pt states she feels like she is doing really well. She states she has no pain but a little tightness at times. She states she still feels like her endurance is limited but feels like she is in a good place to start working on this again. Reported Pain Level Pain Score 0: Self Report Pain Score 1: Self Report Assessment PT Clinical Summary Pt presents to therapy today for her progress report following 20 visits to treat her L TKA on . Pt demonstrates improved LE strength and improved ROM into both flexion and extension. She is still lacking ~4 deg of extension and ~5 deg of flexion to functional values. She reports no functional limitations at this time. She no longer requires skilled therapy services and will be d/c 'ed to [facility]. Plan of Care PT Services Indicated No
== END 2024-10-17 12:54 | disposition home or self-care (01) ==
LOC: ANHGOSHPT 11:00
PROVIDERS: PCP Internal Medicine; Visit Provider Orthopaedic Surgery
DX: Z47.1 Aftercare following joint replacement surgery (principal); Z96.652 Presence of left artificial knee joint
CPT/HCPCS: 97014; 97016; 97110; 97140; 97161; 97530; G0283